=== PATIENT | female | born 1955 | race Caucasian/White ===

== ENCOUNTER 2019-10-21 15:16 | Emergency (ER) | payer OTHER ==
--- OUTSIDE RECORDS SUMMARY | 2019-10-21 15:19 | XMS REPORT | Continuity of Care Document ---
:1955 Author Organization [facility] t Address [address] Mejia [address] [place] [id number] Care Team Providers Name Role Phone Unavailable Unavailable Unavailable Problems This patient has no known problems. Allergies, Adverse Reactions, Alerts This patient has no known allergies or adverse reactions. Medications This patient has no known medications. Procedures This patient has no known procedures. Results This patient has no known results.
[2019-10-21 16:19] LABS: Absolute Lymphocytes (CBC) 1.4 K/uL (0.7-4.9); Hematocrit 41.5 % (36.0-45.0); Lymphocytes % 24.1 % (15.3-44.8); MPV 8.9 fL (7.6-11.3); RBC Red Blood Cell Count 4.96 M/uL (3.86-4.86)
[2019-10-21 16:37] LABS: ALT/SGPT 23 U/L (12-78); AST/SGOT 22 U/L (15-37); Albumin 3.8 g/dL (3.4-5.0); Alkaline Phosphatase 58 U/L (45-117); BUN Blood Urea Nitrogen 11 mg/dL (7-18); Bicarbonate 27 mmol/L (21-32); Bilirubin Direct 0.2 mg/dL (0-0.2); Bilirubin Total 0.5 mg/dL (0.2-1.0); Glucose Level 186 mg/dL (74-106); Magnesium 1.9 mg/dL (1.8-2.4); NT PRO-BNP 139 pg/mL (<125); Potassium 3.4 mmol/L (3.5-5.1); Protein, Total 7.3 g/dL (6.4-8.2); Sodium Level 141 mmol/L (136-145); Troponin (Emerg Dept Use Only) < 0.02 ng/mL (0.0-0.045)
[2019-10-21 16:38] LABS: Protime INR 0.94
--- NOTE | 2019-10-21 16:47 | RAD REPORT ---
EXAM DESCRIPTION: Isaiah Single View10/21/2019 3:46 pm CLINICAL HISTORY: Chest pain COMPARISON: 2011 FINDINGS: The lungs appear clear of acute infiltrate. The heart is normal size IMPRESSION: No acute abnormalities displayed
--- NOTE | 2019-10-21 17:13 | EDPHYS ---
Physician Documentation [facility] Name: Sue Rajput Age: 63 yrs Sex: Female : 1955 Arrival Date: 10/21/2019 Time: 15:19 Bed 8 Private MD: Tabitha Arzola C ED Physician Albaro Bridges HPI: 10/20 16:00 This 63 yrs old Female presents to ER via Ambulatory with complaints of kb Shortness Of Breath, Chest Pain. 16:00 The patient or guardian reports chest pain that is located primarily in the anterior kb chest wall, left. Onset: yesterday. The pain does not radiate. Associated signs and symptoms: The patient has no apparent associated signs or symptoms. The chest pain is described as sharp. Duration: The patient or guardian reports multiple episodes, that are intermittent. Modifying factors: The symptoms are alleviated by remaining still, the symptoms are aggravated by deep breath. Severity of pain: At its worst the pain was moderate in the emergency department the pain has improved moderately. The patient has experienced a previous episode. The patient has not recently seen a physician. Pt reports left sided chest pain that started yesterday. States the pain is better, but she still has it when she takes a deep breath so she came just to make sure everything was ok. States she has had this before and it was due to stress. Historical: - Allergies: 15:33 Yellow Dye; ks7 - PMHx: 15:33 Diabetes - NIDDM; Diverticulitis; Hypertension; Asthma; Ulcerative Colitis; Arthritis; ks7 - Immunization history:: Adult Immunizations up to date. - Social history:: Smoking status: Patient denies any tobacco usage or history of. ROS: 15:59 Constitutional: Negative for fever, chills, and weight loss, Respiratory: Negative for kb shortness of breath, cough, wheezing, and pleuritic chest pain, Abdomen/GI: Negative for abdominal pain, nausea, vomiting, diarrhea, and constipation, Back: Negative for injury and pain, MS/Extremity: Negative for injury and deformity, Skin: Negative for injury, rash, and discoloration, Neuro: Negative for headache, weakness, numbness, tingling, and seizure. 15:59 Cardiovascular: Positive for chest pain, of the anterior aspect of left upper chest, with deep breath only. Exam: 15:59 Constitutional: This is a well developed, well nourished patient who is awake, alert, kb and in no acute distress. Head/Face: Normocephalic, atraumatic. Chest/axilla: Normal chest wall appearance and motion. Nontender with no deformity. No lesions are appreciated. Cardiovascular: Regular rate and rhythm with a normal S1 and S2. No gallops, murmurs, or rubs. Normal PMI, no JVD. No pulse deficits. Respiratory: Lungs have equal breath sounds bilaterally, clear to auscultation and percussion. No rales, rhonchi or wheezes noted. No increased work of breathing, no retractions or nasal flaring. Abdomen/GI: Soft, non-tender, with normal bowel sounds. No distension or tympany. No guarding or rebound. No evidence of tenderness throughout. Skin: Warm, dry with normal turgor. Normal color with no rashes, no lesions, and no evidence of cellulitis. MS/ Extremity: Pulses equal, no cyanosis. Neurovascular intact. Full, normal range of motion. Neuro: Awake and alert, GCS 15, oriented to person, place, time, and situation. Cranial nerves II-XII grossly intact. Motor strength 5/5 in all extremities. Sensory grossly intact. Cerebellar exam normal. Normal gait. Vital Signs: 15:28 BP 175 / 81; Pulse 79; Resp 18; Temp 98(TE); Pulse Ox 99% on R/A; Weight 68.04 kg (R); ks7 Height 5 ft. 2 in. (157.48 cm); Pain 4/10; 16:30 BP 161 / 80; Pulse 62; Resp 16 S; Pulse Ox 97% on R/A; aa5 17:20 BP 169 / 87; Pulse 62; Resp 18 S; Pulse Ox 97% on R/A; aa5 15:28 Body Mass Index 27.44 (68.04 kg, 157.48 cm) ks7 MDM: 15:35 Patient medically screened. kb 15:57 Data reviewed: vital signs, nurses notes. Data interpreted: Pulse oximetry: on room air kb is 99 %. Interpretation: normal. 17:09 Counseling: I had a detailed discussion with the patient and/or guardian regarding: the kb historical points, exam findings, and any diagnostic results supporting the discharge/admit diagnosis, lab results, radiology results, the need for outpatient follow up, a family practitioner, to return to the emergency department if symptoms worsen or persist or if there are any questions or concerns that arise at home. 10/20 15:36 Order name: Basic Metabolic Panel; Complete Time: 16:47 kb 10/20 15:36 Order name: CBC with Diff; Complete Time: 16:24 kb 10/20 15:36 Order name: LFT's; Complete Time: 16:47 kb 10/20 15:36 Order name: Magnesium; Complete Time: 16:47 kb 10/20 15:36 Order name: NT PRO-BNP; Complete Time: 16:47 kb 10/20 15:36 Order name: PT-INR; Complete Time: 16:47 kb 10/20 15:36 Order name: Troponin (emerg Dept Use Only); Complete Time: 16:47 kb 10/20 15:36 Order name: XRAY Chest (1 view); Complete Time: 16:48 kb 10/20 15:36 Order name: EKG; Complete Time: 15:37 kb 10/20 15:36 Order name: Cardiac monitoring; Complete Time: 16:00 kb 10/20 15:36 Order name: EKG - Nurse/Tech; Complete Time: 16:00 kb 10/20 15:36 Order name: IV Saline Lock; Complete Time: 16:00 kb 10/20 16:27 Order name: D-Dimer; Complete Time: 16:47 EDMS 10/20 15:36 Order name: Labs collected and sent; Complete Time: 16:00 kb 10/20 15:36 Order name: O2 Per Protocol; Complete Time: 16:00 kb 10/20 15:36 Order name: O2 Sat Monitoring; Complete Time: 16:00 kb Administered Medications: No medications were administered Disposition: 18:06 Co-signature as Attending Physician, Albaro Bridges MD I agree with the assessment and kdr plan of care. Disposition: 10/21/19 17:13 Discharged to Home. Impression: Chest pain on breathing. - Condition is Stable. - Discharge Instructions: Chest Wall Pain, [id number], Nonspecific Chest Pain, [id number]. - Medication Reconciliation Form, Thank You Letter, Antibiotic Education, Prescription Opioid Use form. - Follow up: Emergency Department; When: As needed; Reason: Worsening of condition. Follow up: Tabitha Arzola MD; When: 2 - 3 days; Reason: Recheck today's complaints, Continuance of care, Re-evaluation by your physician. Signatures: Dispatcher [employer] [facility] Estefanía Hart, RESIDENCY DIRECTOR-C RESIDENCY DIRECTOR-Albaro Yepez MD MD kdr Annamarie Ruiz RN RN iw Cordelia Yu RN RN ks7 Corrections: (The following items were deleted from the chart) 16:27 15:56 D-DIMER+COAG.LAB.BRZ ordered. [facility] 17:33 17:13 10/21/2019 17:13 Discharged to Home. Impression: Chest pain on breathing. iw Condition is Stable. Forms are Medication Reconciliation Form, Thank You Letter, Antibiotic Education, Prescription Opioid Use. Follow up: Emergency Department; When: As needed; Reason: Worsening of condition. Follow up: Tabitha Arzola; When: 2 - 3 days; Reason: Recheck today's complaints, Continuance of care, Re-evaluation by your physician. kb
--- NOTE | 2019-10-21 17:13 | ER ---
Nurse's Notes [facility] Name: Sue Rajput Age: 63 yrs Sex: Female : 1955 Arrival Date: 10/21/2019 Time: 15:19 Bed 8 Private MD: Tabitha Arzola C Diagnosis: Chest pain on breathing Presentation: 10/20 15:28 Chief complaint: Patient states: CP, Left side under her breast, pain increases when ks7 bending over and SOB. Pt also c/o SBP >160 x 2 days. Pt denies dizziness, n/v/d. Pt aaox4, ambulatory, HERNANDEZ. Coronavirus screen: Client denies travel out of the [place] in the last 14 days. shortness of breath, Client presents with at least one sign or symptom that may indicate coronavirus-19. Standard/surgical mask placed on the client. The client denies any previous COVID testing. Ebola Screen: Patient negative for fever greater than or equal to 101.5 degrees Fahrenheit, and additional compatible Ebola Virus Disease symptoms Patient denies exposure to infectious person. Patient denies travel to an Ebola-affected area in the 21 days before illness onset. Initial Sepsis Screen: Does the patient meet any 2 criteria? No. Patient's initial sepsis screen is negative. Does the patient have a suspected source of infection? No. Patient's initial sepsis screen is negative. Risk Assessment: Do you want to hurt yourself or someone else? Patient reports no desire to harm self or others. Onset of symptoms was October 20, 2019. 15:28 Method Of Arrival: Ambulatory ks7 15:28 Acuity: ADA 3 ks7 Triage Assessment: 15:33 General: Appears in no apparent distress. uncomfortable, Behavior is calm, cooperative. ks7 Pain: Complains of pain in Left chest Pain currently is 4 out of 10 on a pain scale. Quality of pain is described as sharp, Pain began 1 day ago. Is intermittent, Aggravated by increased activity, Deep breathing. Respiratory: Reports shortness of breath at rest Onset: The symptoms/episode began/occurred yesterday, the patient has moderate shortness of breath. GI: No deficits noted. Historical: - Allergies: 15:33 Yellow Dye; ks7 - PMHx: 15:33 Diabetes - NIDDM; Diverticulitis; Hypertension; Asthma; Ulcerative Colitis; Arthritis; ks7 - Immunization history:: Adult Immunizations up to date. - Social history:: Smoking status: Patient denies any tobacco usage or history of. Screenin:45 Abuse screen: Denies threats or abuse. Nutritional screening: No deficits noted. aa5 Tuberculosis screening: No symptoms or risk factors identified. Fall Risk None identified. Assessment: 15:45 General: Appears comfortable, Behavior is calm, cooperative. Pain: Complains of pain in aa5 under left breast Pain currently is 0 out of 10 on a pain scale. Quality of pain is described as sharp, Is intermittent. Neuro: Level of Consciousness is awake, alert, obeys commands, Oriented to person, place, time, situation. Cardiovascular: Heart tones S1 S2 present Rhythm is sinus rhythm. Respiratory: Reports shortness of breath on exertion Airway is patent Respiratory effort is even, unlabored, Respiratory pattern is regular, symmetrical, Breath sounds are clear bilaterally. Denies cough. GI: No signs and/or symptoms were reported involving the gastrointestinal system. : No signs and/or symptoms were reported regarding the genitourinary system. EENT: No signs and/or symptoms were reported regarding the EENT system. Derm: Skin is pink, warm \T\ dry. Musculoskeletal: Range of motion: intact in all extremities. 16:30 Reassessment: Patient is alert, oriented x 3, equal unlabored respirations, skin aa5 warm/dry/pink. 17:25 Reassessment: Patient is alert, oriented x 3, equal unlabored respirations, skin aa5 warm/dry/pink. Vital Signs: 15:28 BP 175 / 81; Pulse 79; Resp 18; Temp 98(TE); Pulse Ox 99% on R/A; Weight 68.04 kg (R); ks7 Height 5 ft. 2 in. (157.48 cm); Pain 4/10; 16:30 BP 161 / 80; Pulse 62; Resp 16 S; Pulse Ox 97% on R/A; aa5 17:20 BP 169 / 87; Pulse 62; Resp 18 S; Pulse Ox 97% on R/A; aa5 15:28 Body Mass Index 27.44 (68.04 kg, 157.48 cm) ks7 ED Course: 15:19 Patient arrived in ED. ag5 15:20 Tabitha Arzola MD is Private Physician. ag5 15:32 Triage completed. ks7 15:33 Arm band placed on right wrist. ks7 15:35 Estefanía Hart FNP-C is [facility]. kb 15:35 Albaro Bridges MD is Attending Physician. kb 15:38 Aimee Matute, RN is Primary Nurse. aa5 15:45 Patient has correct armband on for positive identification. Placed in gown. Bed in low aa5 position. Call light in reach. Side rails up X2. air sampling and monitoring on. Pulse ox on. NIBP on. 15:46 XRAY Chest (1 view) In Process Unspecified. EDMS 15:55 Initial lab(s) drawn, by me, sent to lab. Inserted saline lock: 20 gauge in right aa5 antecubital area, using aseptic technique. Blood collected. 17:13 Tabitha Arzola MD is Referral Physician. kb 17:25 No provider procedures requiring assistance completed. IV discontinued, intact, aa5 bleeding controlled, No redness/swelling at site. Pressure dressing applied. Administered Medications: No medications were administered Outcome: 17:13 Discharge ordered by . kb 17:25 Discharged to home ambulatory. aa5 17:25 Condition: stable 17:25 Discharge instructions given to patient, Instructed on discharge instructions, follow up and referral plans. Demonstrated understanding of instructions, follow-up care. 17:33 Patient left the ED. iw Signatures: Dispatcher [employer] [facility] Estefanía Hart FNP-C FNP-Annamarie Ho RN RN iw Aimee Matute RN DONELL aa5 Schuyler Bernstein Cordelia Garay RN RN ks7
[2019-10-21 17:40] VITALS: BP 175/81; TEMP 98; O2SAT 99
--- NOTE | 2019-10-22 07:29 | EKG ---
Test Date: 2019-10-21 Test Time: 15:53:28 In Store Marketing Associate: SAKSHI MEASUREMENT RESULTS: Intervals: Rate: 68 TN: 162 QRSD: 84 QT: 452 QTc: 480 Enola: P: 51 TN: 162 QRS: 60 T: 58 INTERPRETIVE STATEMENTS: Sinus rhythm with occasional premature ventricular complexes Otherwise normal ECG Compared to ECG 05/28/2003 10:15:00 Ventricular premature complex(es) now present Electronically Signed On 10-22-19 07:28:33 CDT by London Miller
== END 2019-10-21 17:33 | disposition home or self-care (01) ==
LOC: ER 15:16
DX: R07.1 Chest pain on breathing (principal); I10 Essential (primary) hypertension; Z91.048 Other nonmedicinal substance allergy status
CPT/HCPCS: 36415; 71045; 80048; 80076; 83735; 83880; 84484; 85025; 85379; 85610; 93005; 99284

== ENCOUNTER 2021-01-25 06:21 | Day surgery (SDC) | payer OTHER ==
[2021-01-25] MEDS ORDERED: NA CHLORIDE 0.9% 1,000 ML ONE (06:54)
[2021-01-25] MEDS ORDERED: LIDOCAINE 1% MPF 5 ML VIAL ONE (07:58)
[2021-01-25] MEDS ORDERED: propofoL 200 MG/20 ML VIAL IV ONE (07:58)
--- NOTE | 2021-01-25 08:39 | ENDO RPT ---
[address], [address] COLONOSCOPY PROCEDURE REPORT EXAM DATE: 01/25/2021 PATIENT NAME: Sue Rajput MR #: [id number] BIRTHDATE: 1955 ATTENDING: Alirio Mccullough MD STATUS: outpatient SENIOR CARE SPECIALIST: May WOODS and Kellie Farias RN INDICATIONS: The patient is a 65 yr old Female here for a colonoscopy due to personal history of colon polyps PROCEDURE PERFORMED: Colonoscopy with biopsy - cold polypectomy MEDICATIONS: Per Anesthesia. ESTIMATED BLOOD LOSS: None CONSENT: The patient understands the risks and benefits of the procedure and understands that these risks include, but are not limited to: sedation, allergic reaction, infection, perforation and/or bleeding. Alternative means of evaluation and treatment include, among others: physical exam, x-rays, and/or surgical intervention. The patient elects to proceed with this endoscopic procedure. DESCRIPTION OF PROCEDURE: During intra-op preparation period all mechanical medical equipment was checked for proper function. Hand hygiene and appropriate measures for infection prevention was taken. Procedure, possible complications, alternatives including, but not limited to possibility of bleeding, perforation, tear, infection, sepsis, need for surgery, need for blood transfusion, were explained to the patient. After the risks, benefits and alternatives of the procedure were thoroughly explained, Informed consent was verified, confirmed and timeout was successfully executed by the treatment team. The patient was placed in the left lateral position. A digital rectal exam was performed and revealed external hemorrhoids. After appropriate level of anesthesia, the scope was passed. The EC-[id number] ([id number]) endoscope was introduced through the anus and advanced to the cecum, which was identified by the ileocecal valve. The quality of the prep was good. The instrument was then slowly withdrawn as the colon was fully examined. Scope withdrawal time was . COLON FINDINGS: Diverticula was found in the descending colon. The opening was small. A sessile polyp was found. Retroflexed views revealed no abnormalities. The scope was then completely withdrawn from the patient and the procedure terminated. ADVERSE EVENTS: There were no complications. IMPRESSIONS: 1. Diverticula in the descending colon 2. Sessile polyp was found RECOMMENDATIONS: 1. await biopsy results 2. follow-up: office 1 week(s) 3. no seeds in diet RECALL: for Colonoscopy, pending biopsy results. Alirio Mccullough MD eSigned: Alirio Mccullough MD 01/25/2021 8:39 AM cc: Oleg Arzola M.D. CPT CODES: ICD9 CODES: PATIENT NAME: Sue Rajput MR#: [id number]
[2021-01-25 09:10] VITALS: TEMP 97.9
[2021-01-25 09:11] VITALS: BP 131/62; O2SAT 100
== END 2021-01-25 09:11 | disposition home or self-care (01) ==
LOC: OR 06:21
PROVIDERS: ATTEND Surgery
PROC: 0DBK8ZX Excision of Ascending Colon, Via Natural or Artificial Opening Endoscopic, Diagnostic (ICD-10-PCS; principal; 2021-01-25 08:15)
DX: Z86.010 Personal history of colon polyps (principal); K63.5 Polyp of colon; E11.9 Type 2 diabetes mellitus without complications; I10 Essential (primary) hypertension; E03.9 Hypothyroidism, unspecified; E78.00 Pure hypercholesterolemia, unspecified; K52.9 Noninfective gastroenteritis and colitis, unspecified; K57.92 Diverticulitis of intestine, part unspecified, without perforation or abscess without bleeding; Z20.822 Contact with and (suspected) exposure to COVID-19
CPT/HCPCS: 82947; 88305; 45380; U0003; J2704; J7030

== ENCOUNTER → 2022-02-07 | Day surgery (SDC) | payer OTHER ==
--- NOTE | 2022-02-07 11:06 | RAD REPORT ---
EXAM DESCRIPTION: US - Guided FNA Non Breast - 02/07/2022 9:42 am CLINICAL HISTORY: R22.1 COMPARISON: January 25, 2022 cat scan TECHNIQUE: Risks, benefits and alternatives of procedure explained to the patient and informed conse nt obtained. Skin and subcutaneous tissues anesthetized with lidocaine. Under sonographic guidance, a 17 gauge needle was placed into the left supraclavicular lymph node. Th rough this an 18 gauge needle was obtained. Four 1 centimeter core biopsies performed Specimens given to pathology. Patient experienced no immediate complication IMPRESSION: Core biopsies left supraclavicular lymph node
== END ==
LOC: FNA 08:00
PROVIDERS: ATTEND Surgery
PROC: 07B23ZX Excision of Left Neck Lymphatic, Percutaneous Approach, Diagnostic (ICD-10-PCS; principal; 2022-02-07)
DX: R22.1 Localized swelling, mass and lump, neck (principal)
CPT/HCPCS: 88305